=== PATIENT | male | born 1975 | race Caucasian/White ===

== ENCOUNTER → 2016-07-22 | Outpatient (CLI) | payer BC | LOC: LAB 11:49 | PROVIDERS: ATTEND Family Medicine | DX: Z53.8 Procedure and treatment not carried out for other reasons (principal) ==

== ENCOUNTER → 2016-07-23 | Outpatient (CLI) | payer BC ==
[2016-07-23 12:56] LABS: URINE GLUCOSE FASTING NEGATIVE
[2016-07-23 13:05] LABS: URINE GLUCOSE 1/2 HOUR NEGATIVE
[2016-07-23 13:44] LABS: URINE GLUCOSE 1 HOUR NEGATIVE
[2016-07-23 13:56] LABS: GLUCOSE 1 HOUR 185 MG/DL
[2016-07-23 14:35] LABS: URINE GLUCOSE 2 HOUR NEGATIVE
[2016-07-23 14:37] LABS: GLUCOSE FASTING 92 MG/DL
[2016-07-24 01:35] LABS: FREE T4 (FREE THYROXINE)-BATCH 1.1 NG/DL (0.78-2.19)
[2016-07-24 03:40] LABS: T3 FREE - BATCH 3.69 PG/ML (2.77-5.27)
[2016-07-24 04:29] LABS: FOLATE 7.4 NG/ML (2.76-20)
== END ==
LOC: LAB 12:15
PROVIDERS: ATTEND Family Medicine
DX: R53.83 Other fatigue (principal); D64.9 Anemia, unspecified; E03.9 Hypothyroidism, unspecified; E53.9 Vitamin B deficiency, unspecified; E55.9 Vitamin D deficiency, unspecified; E87.8 Other disorders of electrolyte and fluid balance, not elsewhere classified; F41.1 Generalized anxiety disorder; F48.2 Pseudobulbar affect
CPT/HCPCS: 36415; 82306; 82607; 82728; 82746; 82951; 82952; 83090; 84402; 84403; 84439; 84443; 84481; 84681